=== PATIENT | female | born 1930 ===

== ENCOUNTER 2017-10-24 10:13 | Observation (INO) | payer MEDICAID ==
[2017-10-24 10:23] VITALS: BMI 21.7
--- NOTE | 2017-10-24 10:36 | C.PDOC ---
Time Seen by Provider: 10/24/17 10:23 Chief Complaint (Nursing): Weakness/Neurological Deficit Past Medical History - Medical History PMH: Arthritis, Asthma, Bronchitis, HTN, Hypercholesterolemia, Pneumonia Denies: HIV, Chronic Kidney Disease Surgical History: Appendectomy, Cholecystectomy - [facility] Procedures INTRODUCTION OF ANTI-INFLAM INTO RESP TRACT, VIA OPENING (05/02/16) Family History: States: Unknown Family Hx - Social History Hx Alcohol Use: No Hx Substance Use: No Disposition - Disposition
[2017-10-24] MEDS ORDERED: Labetalol 25mg/5ml Syringe IVP STA (10:38)
--- NOTE | 2017-10-24 10:40 | C.PDOC ---
History Of Present Illness 87-YEAR-OLD FEMALE, PRESENTS TO THE EMERGENCY DEPARTMENT, [facility] CVA/DEHYDRATION. PS SHE IS HAVING RECURRENT NAUSEA, HEADACHE, DIZZINESS, AND EPIG PAIN, PT WOKE UP W SX THIS MORNING. SIMILAR SX A WEEK AGO, EVAL IN [place] AND DC VIRAL SYNDROME, PT HAS HX OF HTN AND IS WELL CONTROLLED. AVG SYS IS 130-140, DENIES HX OF LABILE HTN. TOLD SHE HAD ELEVATED BP IN CT. SYSTOLIC 220 TODAY, SHE TOOK HER OWN [place] THIS MORNING. CLINIC GAVE PT AMLODIPINE W MINIMAL IMPROVEMENT. CURRENTLY NAUSEA, CP AND DIZZ RESOLVED. PT C/O OF RESIDUAL HERNANDEZ. PER EMS NO NOTED FOCAL DEFICIT EN ROUTE. PT C/ O NEW ONSET LEFT LEG HEAVINESS ONGOING FOR 20 DAYS. CHRONICALLY USING A CANE. BUT STATES LEG FEELS FUNNY WHEN SHE TRIES TO WALK. EXAM NEURO SEE [facility] REMAINDER NEG Time Seen by Provider: 10/24/17 10:23 Chief Complaint (Nursing): Weakness/Neurological Deficit History Per: Patient History/Exam Limitations: no limitations Onset/Duration Of Symptoms: Days Current Symptoms Are (Timing): Still Present Past Medical History Reviewed: Historical Data, Nursing Documentation, Vital Signs Vital Signs: Last Vital Signs Temp 98.0 F 10/25/17 07:20 Pulse 64 10/25/17 11:18 Resp 18 10/25/17 07:20 BP 155/65 H 10/25/17 10:14 Pulse Ox 97 10/25/17 14:08 - Medical History PMH: Arthritis, Asthma, Bronchitis, HTN, Hypercholesterolemia, Pneumonia Surgical History: Appendectomy, Cholecystectomy - [facility] Procedures INTRODUCTION OF ANTI-INFLAM INTO RESP TRACT, VIA OPENING (05/02/16) Family History: States: No Known Family Hx - Social History Hx Alcohol Use: No Hx Substance Use: No Review Of Systems Except As Marked, All Systems Reviewed And Found Negative. Constitutional: Negative for: Fever ENT: Negative for: Throat Pain Cardiovascular: Positive for: Chest Pain. Negative for: Palpitations, Edema, Light Headedness Respiratory: Negative for: Shortness of Breath Gastrointestinal: Positive for: Nausea, Abdominal Pain Genitourinary: Negative for: Incontinence Musculoskeletal: Negative for: Back Pain Skin: Negative for: Rash Neurological: Positive for: Headache, Dizziness. Negative for: Weakness, Numbness Physical Exam - Physical Exam Appears: Non-toxic, No Acute Distress Skin: Warm, Dry, No Rash Head: Atraumatic, Normacephalic Eye(s): bilateral: Normal Inspection, PERRL, EOMI Nose: Normal Oral Mucosa: Moist Lips: Normal Appearing Neck: Normal ROM Chest: Symmetrical Cardiovascular: Rhythm Regular, No Murmur Respiratory: Normal Breath Sounds, No Accessory Muscle Use Gastrointestinal/Abdominal: Soft, No Tenderness Back: No CVA Tenderness, No Paraspinal Tenderness Extremity: Normal ROM, No Deformity, No Swelling Neurological/Psych: Other (SEE NIH) ED Course And Treatment - Laboratory Results Result Diagrams: 10/25/17 06:39 10/25/17 06:39 ECG: Interpreted By Me, Viewed By Me ECG Rhythm: Sinus Rhythm ECG Interpretation: No Acute Changes Rate From EC O2 Sat by Pulse Oximetry: 97 (RA) Pulse Ox Interpretation: Normal NIHSS Stroke Scale - Date/Time Evaluation Performed Date Performed: 10/24/17 Time Performed: 10:39 When Was NIHSS Performed: Baseline - How Severe is the Stoke Level of Consciousness: 0=Alert LOC to Questions: 0=Both comments correct LOC to commands: 0=Obeys both correctly Best Gaze: 0=Normal Visual: 0=No visual loss Facial: 0=Normal Motor Arm - Left: 0=No drift Motor Arm - Right: 0=No drift Motor Leg - Left: 1=Drift before 5 sec Motor Leg - Right: 0=No drift Limb Ataxia: 0=Absent Sensory: 0=Normal Best Language: 0=No aphasia Dysarthia: 0=Normal articulation Extinction & Inattention (Neglect): 0=Normal, no object Score: 1 Severity Of Stroke: 1-4= Minor Stroke (1) Progress - Re-Evaluation Re-evaluation Note: 10/24/17 11:00 137/70. CT PENDING 10/24/17 12:48 MILD NAUSEA, HERNANDEZ RESOLVED. NEURO EXAM UNCH. VSS. D/W DR Arcelia MACE WILL ADMIT - Data Reviewed Data Reviewed: Lab, Diagnostic imaging, EKG, Old records - Critical Care Citical Care: Excluding Proc Time Critical Care Time: 90 minutes - Continuity of Care Discussed patient case with:: Patient, Family-HIPPA compliant, Covering for PMD rTPA Inclusion/Exclusion - Refusal of Treatment Patient Refused Treatment: No - Inclusion Criteria for Altepase Patient is 18 years or Older: Yes The Clinical Diagnosis of Ischemic Stroke That is Causing a Potentially Disabling Neurological Deficit: Yes Time of Onset is Well Established to be Less Than 270 Minute Before Treatment Would Begin: No Risk/Benefit Discussed With Patient/Family Member Present: Yes - Exclusion Criteria for Altepase Uncontrolled Hypertension at Time of Treatment (Systolic BP above 185 or Diastolic BP above 110 mmHg): Yes Active Internal Bleeding: No Known Bleeding Diathesis Including but Not Limited to: Platelets Below 100,000/ mm,PTT Above 40 sec After Heparin Use, Current Use of Oral Anitcoagulant With INR Greater Than 1.7 or PT Greater Than 15 secs: No Evidence of an Intracranial Hemorrhage: No Evidence of Major Acute Infarct With Signs Greater Than 1/3 MCA Territory: No Suspicion of Subarachnoid Hemorrhage on Pretreatment Evaluation Even if CT Head Negative For Hemorrhage: No - Warning to TPA With Conditions Following Conditions Weighed Against Anticipated Benefit: Yes Condition: Stroke Serevity Too Mild, Age Greater Than 75 years, Care Team Unable to Determine Eligibilty Additional Condition (For 3-4.5 Hour Window): Age Greater Than 80 Disposition Counseled Patient/Family Regarding: Studies Performed, Diagnosis - Disposition Disposition: HOSPITALIZED Disposition Time: 12:49 Condition: STABLE - POA Present On Arrival: None - Clinical Impression Clinical Impression: Hypertensive emergency, TIA (transient ischemic attack) - Scribe Statement The provider has reviewed the documentation as recorded by the Scribe (Christy Harrell) All medical record entries made by the Scribe were at my direction and personally dictated by me. I have reviewed the chart and agree that the record accurately reflects my personal performance of the history, physical exam, medical decision making, and the department course for this patient. I have also personally directed, reviewed, and agree with the discharge instructions and disposition. Decision To Admit - Pt Status Changed To: Hospital Disposition Of: Observation - . Bed Request Type: Telemetry Admitting Physician: Mannie Mace Patient Diagnosis: Hypertensive emergency, TIA (transient ischemic attack)
[2017-10-24] MEDS ORDERED: Labetalol 25mg/5ml Syringe ONE (10:48)
[2017-10-24 10:53] LABS: BASO % 0.5 % (0.0-2.0); EOS # 1.5 K/uL (0.0-0.7); EOS % 25.1 % (0.0-4.0); LYMPH # 1.7 K/uL (1.0-4.3); LYMPH % 27.7 % (20.0-40.0); MEAN CELL VOLUME 88.7 fL (81.0-99.0); MEAN CORPUSCULAR HEMOGLOBIN 30.1 pg (27.0-31.0); MEAN PLATELET VOLUME 8.1 fL (7.2-11.7); MONO # 0.3 K/uL (0.0-0.8); MONO % 5.1 % (0.0-10.0); NEUT # 2.5 K/uL (1.8-7.0); NEUT % 41.6 % (50.0-75.0); PLATELET COUNT 247 K/uL (130-400); RBC 4.33 Mil/uL (3.80-5.20); WHITE BLOOD COUNT 6.1 K/uL (4.8-10.8)
[2017-10-24 11:09] LABS: PROTHROMBIN TIME 11.2 SECONDS (9.7-12.2)
[2017-10-24 11:20] LABS: ALB/GLOB RATIO 1.4 (1.0-2.1); ALBUMIN 4.3 g/dL (3.5-5.0); ALT/SGPT 26 U/L (9-52); AST/SGOT 28 U/L (14-36); BLOOD UREA NITROGEN 10 mg/dL (7-17); CALCIUM 9.4 mg/dl (8.6-10.4); GFR AFRICAN-AMERICAN > 60; GFR NON-AFRICAN AMERICAN > 60; HDL CHOLESTEROL 68 mg/dL (30-70)
--- NOTE | 2017-10-24 11:25 | RAD ---
HISTORY: Code Stroke COMPARISON: No prior. FINDINGS: LUNGS: No active pulmonary disease. PLEURA: No significant pleural effusion identified, no pneumothorax apparent. CARDIOVASCULAR: Atherosclerotic aortic calcifications. Cardiomediastinal silhouette is enlarged. OSSEOUS STRUCTURES: Degenerative changed. VISUALIZED UPPER ABDOMEN: Normal. OTHER FINDINGS: None. IMPRESSION: No active disease.
--- NOTE | 2017-10-24 11:26 | CT ---
PROCEDURE: CT HEAD WITHOUT CONTRAST. HISTORY: Code Stroke COMPARISON: None available. TECHNIQUE: Axial computed tomography images were obtained through the head/brain without intravenous contrast. Radiation dose: Total exam DLP = 751.6 mGy-cm. This CT exam was performed using one or more of the following dose reduction techniques: Automated exposure control, adjustment of the mA and/or kV according to patient size, and/or use of iterative reconstruction technique. FINDINGS: HEMORRHAGE: No intracranial hemorrhage. BRAIN: No mass effect or edema. Atrophy. Chronic microvascular ischemic changes. Bilateral basal ganglia lacunar infarctions. VENTRICLES: Unremarkable. No hydrocephalus. CALVARIUM: Unremarkable. PARANASAL SINUSES: Unremarkable as visualized. No significant inflammatory changes. MASTOID AIR CELLS: Unremarkable as visualized. No inflammatory changes. OTHER FINDINGS: None. IMPRESSION: No acute intracranial pathology. Age-related changes.
[2017-10-24 11:31] LABS: LDL CHOLESTEROL 91 mg/dL (0-129)
[2017-10-24 11:40] LABS: ANISOCYTOSIS SLIGHT; BANDS 1 % (0-2); EOSINOPHIL 24 % (0-4); LYMPHOCYTE 25 % (20-40); MONOCYTE 3 % (0-10); NEUTROPHIL 47 % (50-75); PLATELET ESTIMATE NORMAL (NORMAL); POIKILOCYTOSIS SLIGHT; TOTAL CELLS COUNTED 100
[2017-10-24 11:42] LABS: BURR CELLS SLIGHT
[2017-10-24 11:43] LABS: URINE BACTERIA RARE (<OCC); URINE BILIRUBIN NEGATIVE (NEGATIVE); URINE BLOOD 1+ (NEGATIVE); URINE CLARITY Clear (Clear); URINE COLOR Colorless (YELLOW); URINE GLUCOSE (UA) NORMAL (Normal); URINE PROTEIN NEGATIVE (NEGATIVE); URINE UROBILINOGEN NORMAL mg/dL (0.2-1.0)
[2017-10-24 11:46] LABS: URINE LEUKOCYTE ESTERASE 1+ Leu/uL (Negative)
--- NOTE | 2017-10-24 11:50 | CT ---
PROCEDURE: CTA HEAD AND NECK WITH CONTRAST HISTORY: HTN EMERG, LLE WEAKNESS COMPARISON: None available. TECHNIQUE: Initial noncontrast head CT was performed. Subsequently, CT angiogram of the head and neck were performed after the intravenous administration of 80 mL of Omnipaque 350. Contiguous 1.5mm thick images were obtained in the axial plane of the neck. 2-D coronal and sagittal MPR images were obtained. Imaging postprocessing was performed with 3-D images also obtained. A delayed contrast head CT was also obtained. This CT exam was performed using one or more of the following dose reduction techniques: Automated exposure control, adjustment of the mA and/or kV according to patient size, and/or use of iterative reconstruction technique. Contrast dose: 100 mL Visipaque Radiation dose: Total exam DLP = 351.14 mGy-cm. FINDINGS: HEAD: Right: The intracranial internal carotid artery, and anterior and middle cerebral arteries are widely patent. Left: The intracranial internal carotid artery, and anterior and middle cerebral arteries are widely patent. Posterior circulation: The visualized intracranial vertebral arteries, basilar artery and posterior cerebral arteries are widely patent. There is no endoluminal filling defect to suggest thrombus. There is no intracranial saccular aneurysm. There is no abnormal enhancement on the postcontrast CT. NECK: There is a three vessel aortic arch. There is no stenosis at the origins of the great vessels at the level of the aortic arch. There are mild atherosclerotic calcifications in the carotid bulb. Right Carotid: On the right, the common carotid, internal carotid and external carotid arteries are widely patent. There is no hemodynamically significant stenosis in the internal carotid arteries. Left Carotid: On the left, the common carotid, internal carotid and external carotid arteries are widely patent.There is no hemodynamically significant stenosis in the internal carotid arteries. The vertebral arteries are widely patent. The visualized soft tissues of the neck are normal. The visualized brain and cervical spine are within normal limits. There are retention cysts/polyps in the maxillary sinuses. The lung apices are clear. IMPRESSION: 1. No evidence of intraluminal thrombus, definite significant stenosis or occlusion in the intracranial arteries. 2. No evidence of hemodynamically significant stenosis in the internal carotid arteries. 3. Patent codominant vertebral arteries.
--- NOTE | 2017-10-24 14:47 | CP.PCM.HP ---
History of Present Illness - History of Present Illness History of Present Illness: CC "headache, nausea, high blood pressure" HPI: Patient is a 87 year old female with history of HTN, HLD, asthma, multiple UTIs who reports 1 week history of intermittent right sided headache associated with nausea, dizziness, lightheadedness. She reportedly saw her PMD Dr. Bryan at [facility] today where her systolic BP was found to be >220 and she was given Amlodipine and instructed to go the ED. While in the ED she received Labetalol 20mg IV once. She also complains of substernal pressure like chest pain nonradiating, that is worse with touch and inspiration currently. She attributes some of her chest pain from a prior fall in 2011. She complains of epigastric pain as well, however she states her abdominal pain has improved. She denies vomiting, diarrhea, however states that her last bowel movement was 3 days ago. She also complains of left leg weakness with numbness and paresthesias describe as electric shock like that have been present for a year. She admits to using a cane on her right side. She denies diaphoresis, fevers, changes in vision, hearing, dysphagia, back pain, rash. PMD: Dr. Bryan, [facility] PMH: HTN, HLD, asthma, pneumonia 2002, multiple UTIs, possible hx of CAD, hx of fall in 2011 PSH: appendectomy, cholecystectomy, hysterectomy Family hx: Strong family history of CAD, Mother and sister - CVA. No history of cancer Social hx: denies tobacco, alcohol or drug use. Lives with daughter. 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 Uses a cane with her right hand. Meds: Losartan 100mg PO daily, ASA 81mg PO, Singulair 10mg mQHS daily. As per pharmacy, she last filled script for inhaler in 2016. Allergies: PCN, fish - hives/rash Code status: unknown Health care proxy: Daughter Alena [phone] Present on Admission - Present on Admission Any Indicators Present on Admission: No Review of Systems - Constitutional Constitutional: Headache, Weakness. absent: Fever, Lethargy - EENT Eyes: absent: Change in Vision, Loss of Vision Ears: absent: Decreased Hearing, Abnormal Hearing Nose/Mouth/Throat: absent: Nasal Congestion, Sore Throat - Cardiovascular Cardiovascular: Chest Pain. absent: Edema, Pain Radiating to Arm/Neck/Jaw, Pedal Edema Additional comments: substernal nonradiating pain that is reproducible with touch and inspiration - Respiratory Respiratory: Cough, Pain on Inspiration. absent: Dyspnea - Gastrointestinal Gastrointestinal: Abdominal Pain, Constipation (last bowel movement was 3 days ago ), Nausea. absent: Diarrhea, Loose Stools, Vomiting - Genitourinary Genitourinary: Urinary Frequency, Freq UTI. absent: Dysuria - Musculoskeletal Musculoskeletal: Muscle Weakness (of left lower extremity ), Tingling. absent: Back Pain - Integumentary Integumentary: absent: Pruritus, Rash, Jaundice - Neurological Neurological: Dizziness, Numbness, Headaches, Paresthesias, Weakness. absent: Syncope, Tremor Past Patient History - Infectious Disease Hx of Infectious Diseases: None - Past Medical History & Family History Past Medical History?: Yes - Past Social History Smoking Status: Never Smoked - CARDIAC Hx Hypercholesterolemia: Yes Hx Hypertension: Yes - PULMONARY Hx Asthma: Yes Hx Bronchitis: Yes Hx Pneumonia: Yes - NEUROLOGICAL Hx Neurological Disorder: No - HEENT Hx HEENT Problems: Yes ([place]hin[place]) Hx Cataracts: Yes - RENAL Hx Chronic Kidney Disease: No - ENDOCRINE/METABOLIC Hx Endocrine Disorders: No - HEMATOLOGICAL/ONCOLOGICAL Hx Human Immunodeficiency Virus (HIV): No - INTEGUMENTARY Hx Dermatological Problems: No - MUSCULOSKELETAL/RHEUMATOLOGICAL Hx Arthritis: Yes - GASTROINTESTINAL Hx Gastrointestinal Disorders: No - GENITOURINARY/GYNECOLOGICAL Hx Genitourinary Disorders: No - PSYCHIATRIC Hx Substance Use: No - SURGICAL HISTORY Hx Appendectomy: Yes Hx Cholecystectomy: Yes - ANESTHESIA Hx Anesthesia: Yes Hx Anesthesia Reactions: No Hx Malignant Hyperthermia: No Meds Allergies/Adverse Reactions: Allergies Allergy/AdvReac Type Severity Reaction Status Date / Time Penicillins Allergy RASH Verified 12/15/16 17:30 Physical Exam - Constitutional Appears: No Acute Distress - Head Exam Head Exam: ATRAUMATIC, NORMOCEPHALIC - Eye Exam Eye Exam: EOMI. absent: Scleral icterus Pupil Exam: PERRL - ENT Exam ENT Exam: Mucous Membranes Moist - Expanded ENT Exam Expanded Mouth exam: absent: muffled voice Throat exam: absent: Post Pharyngeal Edema, Tonsillar Erythema, Tonsillar Exudate, Tonsillomegaly - Neck Exam Neck exam: Positive for: Full Rom. Negative for: Thyromegaly - Respiratory Exam Respiratory Exam: Chest Wall Tenderness (to sternum, tenderness reproducible with touch. no rash noted to anterior chest. ), Decreased Breath Sounds. absent : Rales, Rhonchi, Wheezes, Respiratory Distress - Cardiovascular Exam Cardiovascular Exam: REGULAR RHYTHM, +S1, +S2. absent: Gallop, JVD, Rubs - GI/Abdominal Exam GI & Abdominal Exam: Normal Bowel Sounds, Soft. absent: Distended, Firm, Guarding, Hernia, Tenderness - Extremities Exam Extremities exam: Positive for: normal capillary refill, pedal pulses present. Negative for: calf tenderness, pedal edema - Back Exam Back exam: absent: CVA tenderness (L), CVA tenderness (R), rash noted - Neurological Exam Neurological exam: Alert, CN II-XII Intact, Oriented x3 Additional comments: 4/5 strength in upper and lower extremities equally. Sensation intact in left lower extremity. Finger to nose test within normal limits. - Psychiatric Exam Psychiatric exam: Normal Affect - Skin Skin Exam: Dry, Intact, Warm Results - Vital Signs Recent Vital Signs: Last Vital Signs Temp 97.9 F 10/24/17 10:39 Pulse 64 10/24/17 13:10 Resp 18 10/24/17 13:10 BP 118/50 L 10/24/17 13:10 Pulse Ox 97 10/24/17 13:29 - Labs Result Diagrams: 10/24/17 10:48 10/24/17 10:48 Labs: Laboratory Results - last 24 hr 10/24/17 10/24/17 10/24/17 10:19 10:48 10:48 WBC 6.1 RBC 4.33 Hgb 13.0 Hct 38.3 MCV 88.7 MCH 30.1 MCHC 34.0 RDW 15.0 H Plt Count 247 MPV 8.1 Neut % (Auto) 41.6 L Lymph % (Auto) 27.7 Walton % (Auto) 5.1 Eos % (Auto) 25.1 H Baso % (Auto) 0.5 Neut # (Auto) 2.5 Lymph # (Auto) 1.7 Walton # (Auto) 0.3 Eos # (Auto) 1.5 H Baso # (Auto) 0.0 Neutrophils % (Manual) 47 L Band Neutrophils % 1 Lymphocytes % (Manual) 25 Monocytes % (Manual) 3 Eosinophils % (Manual) 24 H Platelet Estimate Normal Poikilocytosis (manual Slight Anisocytosis (manual) Slight [place] Cells Slight PT 11.2 INR 1.0 APTT 30 Sodium Potassium Chloride Carbon Dioxide Anion Gap BUN Creatinine Est GFR ( Amer) Est GFR (Non-Af Amer) POC Glucose (mg/dL) 82 Random Glucose Hemoglobin A1c Calcium Total Bilirubin AST ALT Alkaline Phosphatase Troponin I Total Protein Albumin Globulin Albumin/Globulin Ratio Triglycerides Cholesterol LDL Cholesterol Direct HDL Cholesterol Urine Color Urine Clarity Urine pH Ur Specific Sunshine Urine Protein Urine Glucose (UA) Urine Ketones Urine Blood Urine Nitrate Urine Bilirubin Urine Urobilinogen Ur Leukocyte Esterase Urine WBC (Auto) Urine RBC (Auto) Urine Bacteria Blood Type Antibody Screen 10/24/17 10/24/17 10/24/17 10:48 11:36 11:50 WBC RBC Hgb Hct MCV MCH MCHC RDW Plt Count MPV Neut % (Auto) Lymph % (Auto) Walton % (Auto) Eos % (Auto) Baso % (Auto) Neut # (Auto) Lymph # (Auto) Walton # (Auto) Eos # (Auto) Baso # (Auto) Neutrophils % (Manual) Band Neutrophils % Lymphocytes % (Manual) Monocytes % (Manual) Eosinophils % (Manual) Platelet Estimate Poikilocytosis (manual Anisocytosis (manual) [place] Cells PT INR APTT Sodium 139 Potassium 4.8 Chloride 103 Carbon Dioxide 29 Anion Gap 13 BUN 10 Creatinine 0.8 Est GFR ( Amer) > 60 Est GFR (Non-Af Amer) > 60 POC Glucose (mg/dL) Random Glucose 97 Hemoglobin A1c Calcium 9.4 Total Bilirubin 0.6 AST 28 ALT 26 Alkaline Phosphatase 111 Troponin I < 0.0120 Total Protein 7.4 Albumin 4.3 Globulin 3.1 Albumin/Globulin Ratio 1.4 Triglycerides 90 Cholesterol 206 H LDL Cholesterol Direct 91 HDL Cholesterol 68 Urine Color Colorless Urine Clarity Clear Urine pH 7.0 Ur Specific Sunshine 1.002 L Urine Protein Negative Urine Glucose (UA) Normal Urine Ketones Negative Urine Blood 1+ H Urine Nitrate Negative Urine Bilirubin Negative Urine Urobilinogen Normal Ur Leukocyte Esterase 1+ H Urine WBC (Auto) 5 Urine RBC (Auto) 2 Urine Bacteria Rare Blood Type B POSITIVE Antibody Screen Negative 10/24/17 12:10 WBC RBC Hgb Hct MCV MCH MCHC RDW Plt Count MPV Neut % (Auto) Lymph % (Auto) Walton % (Auto) Eos % (Auto) Baso % (Auto) Neut # (Auto) Lymph # (Auto) Walton # (Auto) Eos # (Auto) Baso # (Auto) Neutrophils % (Manual) Band Neutrophils % Lymphocytes % (Manual) Monocytes % (Manual) Eosinophils % (Manual) Platelet Estimate Poikilocytosis (manual Anisocytosis (manual) [place] Cells PT INR APTT Sodium Potassium Chloride Carbon Dioxide Anion Gap BUN Creatinine Est GFR ( Amer) Est GFR (Non-Af Amer) POC Glucose (mg/dL) Random Glucose Hemoglobin A1c 5.6 Calcium Total Bilirubin AST ALT Alkaline Phosphatase Troponin I Total Protein Albumin Globulin Albumin/Globulin Ratio Triglycerides Cholesterol LDL Cholesterol Direct HDL Cholesterol Urine Color Urine Clarity Urine pH Ur Specific Sunshine Urine Protein Urine Glucose (UA) Urine Ketones Urine Blood Urine Nitrate Urine Bilirubin Urine Urobilinogen Ur Leukocyte Esterase Urine WBC (Auto) Urine RBC (Auto) Urine Bacteria Blood Type Antibody Screen Assessment & Plan - Assessment and Plan (Free Text) Assessment: 87 year old female with history of HTN, HLD, asthma, possible CAD, multiple UTIs who presents for evaluation of headache, nausea, dizziness, lightheadedness and elevated blood pressure. Plan: Assessment/plan Hypertensive urgency Admit to observe on Telemetry BP currently 167/80 Losartan 100mg PO to be started tomorrow am Hydralazine 10mg IV Q6 PRN for SBP >160 Vitals Q 4 hours TSH 1.55, free T4 1.54 Atypical chest pain Initial EKG NSR at 63, no ST-T changes. Troponins x2 EKGs x2 CXR: no active disease Complaint of Abdominal pain, nausea Abdominal exam benign Continue to monitor Zofran 4mg IV Q6 PRN nausea/vomiting Headache, right temporalparietal CT head No acute intracranial pathology. Age-related changes. CTA 1. No evidence of intraluminal thrombus, definite significant stenosis or occlusion in the intracranial arteries.2. No evidence of hemodynamically significant stenosis in the internal carotid arteries. 3. Patent codominant vertebral arteries Tylenol 650mg PO Q6 ELIJAH x1 day Left leg pain with paresthesias CT head No acute intracranial pathology. Age-related changes. Possible secondary to lumbar radiculopathy PT/OT evaluation and treat Follow up as outpatient Hx of multiple UTIs No current complaints of urinary frequency UA 1+ leuk esterase, 1+ blood Possible CAD Initial EKG: NSR at 63, no ST-T changes. EKGs F/u ECHO History of asthma Duoneb Q6 PRN shortness of breath/wheezing History of HLD Fasting lipid panel for tomorrow morning Prophylaxis Heparin 5000 units SC Q12 SCDs DVT risk score of 2 based on age GI prophylaxis not indicated at this time Heart healthy diet, low carb 2 g Na [employer], PGYI Case discussed with Dr. Carroll
[2017-10-24] MEDS ORDERED: Albuterol-Ipratrop 3 mg / 0.5 (3 ml) UD INH PRN (15:14)
--- NOTE | 2017-10-24 19:45 | CARD ---
APPROVED REPORT EKG Measurement Heart [id number] <Conclusion> Normal sinus rhythm Normal ECG
[2017-10-25 07:33] LABS: BLOOD UREA NITROGEN 12 mg/dL (7-17); CALCIUM 9.1 mg/dl (8.6-10.4); GFR AFRICAN-AMERICAN > 60; GFR NON-AFRICAN AMERICAN 59; HDL CHOLESTEROL 59 mg/dL (30-70)
[2017-10-25 07:34] LABS: BASO % 0.5 % (0.0-2.0); EOS # 1.6 K/uL (0.0-0.7); EOS % 25.3 % (0.0-4.0); HEMOGLOBIN 12.2 g/dL (11.0-16.0); LYMPH # 1.5 K/uL (1.0-4.3); LYMPH % 23.3 % (20.0-40.0); MEAN CELL VOLUME 89.4 fL (81.0-99.0); MEAN CORPUSCULAR HEMOGLOBIN 30.8 pg (27.0-31.0); MEAN CORPUSCULAR HGB CONC 34.4 g/dL (33.0-37.0); MEAN PLATELET VOLUME 8.4 fL (7.2-11.7); MONO # 0.4 K/uL (0.0-0.8); MONO % 6.3 % (0.0-10.0); NEUT # 2.8 K/uL (1.8-7.0); NEUT % 44.6 % (50.0-75.0); NRBC % 0.1 % (0.0-2.0); PLATELET COUNT 240 K/uL (130-400); RBC 3.97 Mil/uL (3.80-5.20); RED CELL DISTRIBUTION WIDTH 15.1 % (11.5-14.5); WHITE BLOOD COUNT 6.3 K/uL (4.8-10.8)
[2017-10-25 07:49] LABS: LDL CHOLESTEROL 94 mg/dL (0-129)
[2017-10-25 07:58] VITALS: RESP 18; TEMP 98
[2017-10-25 09:58] LABS: ANISOCYTOSIS SLIGHT; BASOPHIL 1 % (0-2); EOSINOPHIL 29 % (0-4); LYMPHOCYTE 25 % (20-40); MONOCYTE 2 % (0-10); NEUTROPHIL 43 % (50-75); OVALOCYTES SLIGHT; PLATELET ESTIMATE NORMAL (NORMAL); TOTAL CELLS COUNTED 100
[2017-10-25 10:19] VITALS: BP 155/65
[2017-10-25] MEDS ORDERED: Albuterol-Ipratrop 3 mg / 0.5 (3 ml) UD INH ONE (10:45)
--- NOTE | 2017-10-25 10:54 | CP.PCM.PN ---
Subjective - Date & Time of Evaluation Date of Evaluation: 10/25/17 Time of Evaluation: 10:25 - Subjective Subjective: Hospitalist Progress Note Patient was seen and examined at 10:25 AM. She was admitted for HTN Urgency Her blood pressure is currently under control on Losartan 100 mg PO 1x/day and we will add Norvasc 5 mg PO to be taken in the evening She continues to complain of Nausea however, has eaten her dinner and breakfast this morning without any vomiting/loss of appetite. She no longer is complaining of abdominal pain. She complained of Upper Substernal Pain of her chest that was nonradiating: her troponins are negative and EKG shows NSR She moved her bowels normally after having Prune Juice She continues to complain of Left leg paresthesias and pain: confirmed with Daughter Alena that this has been present for over 1 year now. There are NO complaints of bowel/bladder incontinence or saddle anesthesia. She walks with walking can on the right. She will need outpatient CT Lumbar/Sacral Spine She has a history of Asthma and uses Advair only as needed. Stressed to Daughter Alena that this is NOT an as needed medication and that prolonged daily use of this medication for an Asthmatic is not recommended. She will be discharged on Pulmicort daily and Albuterol PRN. There is the possibility of UTI as there is 1+ LE on UA and she continues to complain of burning upon urination. She will be discharged on short course of Ciprofloxacin. NO other issues upon FULL ROS. Exam: General: AAOX3, NAD HEENT: NCA, EOMI, PERRLA, NO cervical/supraclavicular/submandibular lymphadenopathy, NO pharyngeal erythema/exudate, Nasal Turbinates are nonerythematous/nonedematous, Oral Mucosa is moist Cardio: NS1 and NS2, NO M/R/G Resp: CTA B/L, NO R/R/W GI: BSx4, Soft, NT, NO HSM, NO guarding/rebound tenderness, NO CVA Tenderness Ext: Pulses are strong and equal, Capillary Refill is 2 seconds, NO edema Neuro: CN II through XII are grossly intact Assessments: 1). HTN Urgency: b/p is now under control 2). Atypical Chest Pain: troponins are negative 3). Abdominal Pain with Nausea but NO vomiting 4). Right Temporal Parietal HERNANDEZ: NO headache at this time. CT Head and CT Angio Head and Neck were unremarkable 5). Hx Multiple UTI: as per Daughter Alena, no longer on pyridium or macrobid 6). Possible CAD: patient nor daughter give history of this however this was noted on prior H&P. F/U Echo report outpatient 7). Chronic Left Leg Paresthesias/Pain: perform CT Lumbar/Scrum Spine outpatient 8). Hx Asthma: Duoneb treatment at the end of exam today 9). HLD: lipid panel noted and no treatment at this time The following instructions were explained to Jenelle Carvajal and a copy will need to be provided to her upon discharge: 1). Schedule follow up with primary care physician Dr. Jam Bryan to take place in the next 7 days by calling [phone]. Through his office you will need to have the following done: CT Scan of the Lumbar Spine Urine Culture to make sure that there is NO infection after completing antibiotic Follow up report for ultrasound of the heart that was done while you were in the hospital 2). Measure blood pressure and heart rate once a day in the following manner and bring results in with you to your appointment with Dr. Bryan: One day before breakfast One day before lunch One day before dinner Then continue to repeat this cycle 3). You will need to have the following prescriptions filled at your pharmacy on your way from the hospital: Norvasc 5 mg, 1 tablet by mouth 1x/day at 8 PM, Dispense #30, NO refills Pulmicort 180 mcg/actuation, 1 puff inhalation by mouth 2x/day (8 AM and 8 PM), Dispense #1, NO refills Albuterol 90 mcg/acutation, 2 puff inhalation by mouth every 6 hours ONLY NEEDED for shortness of breath, Dispense #1, NO refills Ciprofloxacin 500 mg, 1 tablet by mouth 2x/day (8 AM and 8 PM), Dispense #10, NO refills Pepcid 20 mg, 1 tablet by mouth 2x/day (8 AM and 8 PM), Dispense #60, NO refills 4). You stated that you had enough of Losartan 100 mg at home so please continue to take this at 8 AM every day. 5). DO NOT take the other inhalers that you have at home. 6). You may take 8 ounces of prune juice in the morning if you have not had a bowel movement in 2 to 3 days. 7). Please make sure that you are eating 1 serving of [place]ov[place] yogurt containing probiotics with lunch every day for the next 35 days. This will help you to keep the good bacteria in your colon that may have gone away while you are on the antibiotic for your urine. Mannie Carroll D.O. Objective - Vital Signs/Intake and Output Vital Signs (last 24 hours): Temp Pulse Resp BP Pulse Ox 98.0 F 65 18 155/65 H 98 10/25/17 07:20 10/25/17 10:14 10/25/17 07:20 10/25/17 10:14 10/25/17 07:20 Intake and Output: 10/25/17 10/25/17 06:59 18:59 Intake Total 480 Balance 480 - Medications Medications: Current Medications Acetaminophen (Tylenol 325mg Tab) 650 mg PO Q6 [facility] Last Admin: 10/25/17 06:10 Dose: 650 mg Albuterol/Ipratropium (Duoneb 3 Mg/0.5 Mg (3 Ml) Ud) 3 ml INH RQ6 PRN PRN Reason: Wheezing Albuterol/Ipratropium (Duoneb 3 Mg/0.5 Mg (3 Ml) Ud) 3 ml INH ONCE ONE Stop: 10/25/17 10:46 Heparin Sodium (Porcine) (Heparin) 5,000 units SC Q12 [facility] Last Admin: 10/25/17 10:21 Dose: 5,000 units Hydralazine HCl (Apresoline) 10 mg IVP Q6H PRN PRN Reason: Systolic Blood Pressure Last Admin: 10/24/17 19:31 Dose: 10 mg Losartan Potassium (Cozaar) 100 mg PO DAILY [facility] Last Admin: 10/25/17 10:20 Dose: 100 mg Ondansetron HCl (Zofran Inj) 4 mg IVP Q6 PRN PRN Reason: Nausea/Vomiting Last Admin: 10/24/17 19:31 Dose: 4 mg - Labs Labs: 10/25/17 06:39 10/25/17 06:39 PT 11.2 SECONDS (9.7-12.2) 10/24/17 10:48 INR 1.0 10/24/17 10:48 APTT 30 SECONDS (21-34) 10/24/17 10:48
[2017-10-25 11:19] VITALS: PULSE 64
--- NOTE | 2017-10-25 12:56 | CARD ---
APPROVED REPORT Date of service: 10/25/2017 EXAM: Two-dimensional and M-mode echocardiogram with Doppler and color Doppler. Other Information Quality : GoodRhythm : INDICATION CVA/TIA Cardiac Disease: CAD Syncope RISK FACTORS Hypertension 2D DIMENSIONS IVSd1.1 (0.7-1.1cm)LVDd3.1 (3.9-5.9cm) PWd0.9 (0.7-1.1cm)LVDs2.3 (2.5-4.0cm) FS (%) 25.3 %LVEF (%)60.0 (>50%) M-Mode DIMENSIONS Left Atrium (MM)4.23 (2.5-4.0cm)IVSd1.37 (0.7-1.1cm) Aortic Root2.86 (2.2-3.7cm)LVDd4.71 (4.0-5.6cm) Aortic Cusp Exc.1.87 (1.5-2.0cm)PWd1.16 (0.7-1.1cm) FS (%) 45 %LVDs2.58 (2.0-3.8cm) LVEF (%)76 (>50%) Aortic Valve AI P 1/2 [id number] Mitral Valve MV E Fpximvfd45.3cm/sMV A Xtylkjks104.5cm/sE/A ratio0.7 TDI E/Lateral E'0.0E/Medial E'0.0 Tricuspid Valve TR Peak Dltsihrj599wh/sTR Peak Gr.[id number] LEFT VENTRICLE The left ventricle is normal size. There is mild concentric left ventricular hypertrophy. Left ventricle systolic function is normal. The Ejection Fraction is 60-65%. There is normal LV segmental wall motion. Transmitral Doppler flow pattern is Grade I-abnormal relaxation pattern. There is no ventricular septal defect visualized. RIGHT VENTRICLE The right ventricle is normal size. The right ventricular systolic function is normal. ATRIA The left atrium is mildly dilated. The right atrium size is normal. AORTIC VALVE The aortic valve is mildly sclerotic. The aortic valve is tri-cuspid. There is mild to moderate aortic regurgitation. There is no aortic valvular stenosis. MITRAL VALVE The mitral valve is normal in structure. There is no evidence of mitral valve prolapse. Mitral regurgitation is trace. TRICUSPID VALVE The tricuspid valve is normal in structure. There is trace tricuspid regurgitation. Right ventricular systolic pressure is estimated at less than 30 mmHg. There is no pulmonary hypertension. PULMONIC VALVE The pulmonary valve is normal in structure. There is mild to moderate pulmonic valvular regurgitation. GREAT VESSELS The aortic root is normal in size. The ascending aorta is Mildly dilated. 3.8 cm The IVC is normal in size and collapses >50% with inspiration. PERICARDIAL EFFUSION There is no pericardial effusion. <Conclusion> There is mild concentric left ventricular hypertrophy. Left ventricle systolic function is normal. The Ejection Fraction is 60-65%. Transmitral Doppler flow pattern is Grade I-abnormal relaxation pattern. There is mild to moderate aortic regurgitation. Mitral regurgitation is trace. There is mild to moderate pulmonic valvular regurgitation. The ascending aorta is Mildly dilated. 3.8 cm
[2017-10-25 14:08] VITALS: O2SAT 97
--- NOTE | 2017-10-25 23:04 | CP.PCM.DIS ---
Provider - Provider Date of Admission: 10/24/17 12:50 Attending physician: Mannie Carrlol MD Primary care physician: Dr. Conklin Time Spent in preparation of Discharge (in minutes): 33 Hospital Course - Lab Results Lab Results: Most Recent Lab Values WBC 6.3 K/uL (4.8-10.8) 10/25/17 06:39 RBC 3.97 Mil/uL (3.80-5.20) 10/25/17 06:39 Hgb 12.2 g/dL (11.0-16.0) 10/25/17 06:39 Hct 35.5 % (34.0-47.0) 10/25/17 06:39 MCV 89.4 fL (81.0-99.0) 10/25/17 06:39 MCH 30.8 pg (27.0-31.0) 10/25/17 06:39 MCHC 34.4 g/dL (33.0-37.0) 10/25/17 06:39 RDW 15.1 % (11.5-14.5) H 10/25/17 06:39 Plt Count 240 K/uL (130-400) 10/25/17 06:39 MPV 8.4 fL (7.2-11.7) 10/25/17 06:39 Neut % (Auto) 44.6 % (50.0-75.0) L 10/25/17 06:39 Lymph % (Auto) 23.3 % (20.0-40.0) 10/25/17 06:39 [place] % (Auto) 6.3 % (0.0-10.0) 10/25/17 06:39 Eos % (Auto) 25.3 % (0.0-4.0) H 10/25/17 06:39 Baso % (Auto) 0.5 % (0.0-2.0) 10/25/17 06:39 Neut # (Auto) 2.8 K/uL (1.8-7.0) 10/25/17 06:39 Lymph # (Auto) 1.5 K/uL (1.0-4.3) 10/25/17 06:39 [place] # (Auto) 0.4 K/uL (0.0-0.8) 10/25/17 06:39 Eos # (Auto) 1.6 K/uL (0.0-0.7) H 10/25/17 06:39 Baso # (Auto) 0.0 K/uL (0.0-0.2) 10/25/17 06:39 Neutrophils % (Manual) 43 % (50-75) L 10/25/17 06:39 Band Neutrophils % 1 % (0-2) 10/24/17 10:48 Lymphocytes % (Manual) 25 % (20-40) 10/25/17 06:39 Monocytes % (Manual) 2 % (0-10) 10/25/17 06:39 Eosinophils % (Manual) 29 % (0-4) H 10/25/17 06:39 Basophils % (Manual) 1 % (0-2) 10/25/17 06:39 Platelet Estimate Normal (NORMAL) 10/25/17 06:39 Poikilocytosis (manual Slight 10/24/17 10:48 Anisocytosis (manual) Slight 10/25/17 06:39 Ovalocytes Slight 10/25/17 06:39 Bandar Cells Slight 10/24/17 10:48 PT 11.2 SECONDS (9.7-12.2) 10/24/17 10:48 INR 1.0 10/24/17 10:48 APTT 30 SECONDS (21-34) 10/24/17 10:48 Sodium 137 mmol/L (132-148) 10/25/17 06:39 Potassium 4.2 mmol/L (3.6-5.2) 10/25/17 06:39 Chloride 102 mmol/L (98-107) 10/25/17 06:39 Carbon Dioxide 28 mmol/L (22-30) 10/25/17 06:39 Anion Gap 11 (10-20) 10/25/17 06:39 BUN 12 mg/dL (7-17) 10/25/17 06:39 Creatinine 0.9 mg/dL (0.7-1.2) 10/25/17 06:39 Est GFR ( Amer) > 60 10/25/17 06:39 Est GFR (Non-Af Amer) 59 10/25/17 06:39 POC Glucose (mg/dL) 100 mg/dL (65-110) 10/25/17 11:16 Random Glucose 90 mg/dL (65-105) 10/25/17 06:39 Hemoglobin A1c 5.6 % (4.2-6.5) 10/24/17 12:10 Calcium 9.1 mg/dl (8.6-10.4) 10/25/17 06:39 Phosphorus 4.2 mg/dL (2.5-4.5) 10/25/17 06:39 Magnesium 2.0 mg/dL (1.6-2.3) 10/25/17 06:39 Total Bilirubin 0.6 mg/dL (0.2-1.3) 10/24/17 10:48 AST 28 U/L (14-36) 10/24/17 10:48 ALT 26 U/L (9-52) 10/24/17 10:48 Alkaline Phosphatase 111 U/L (38-126) 10/24/17 10:48 Troponin I < 0.0120 ng/mL (0.00-0.120) 10/24/17 22:09 Total Protein 7.4 g/dL (6.3-8.3) 10/24/17 10:48 Albumin 4.3 g/dL (3.5-5.0) 10/24/17 10:48 Globulin 3.1 gm/dL (2.2-3.9) 10/24/17 10:48 Albumin/Globulin Ratio 1.4 (1.0-2.1) 10/24/17 10:48 Triglycerides 56 mg/dL (0-149) D 10/25/17 06:39 Cholesterol 182 mg/dL (0-199) 10/25/17 06:39 LDL Cholesterol Direct 94 mg/dL (0-129) 10/25/17 06:39 HDL Cholesterol 59 mg/dL (30-70) 10/25/17 06:39 Free T4 1.54 ng/dL (0.78-2.19) 10/24/17 18:24 TSH 3rd Generation 1.55 mIU/L (0.46-4.68) 10/24/17 18:05 Urine Color Colorless (YELLOW) 10/24/17 11:36 Urine Clarity Clear (Clear) 10/24/17 11:36 Urine pH 7.0 (5.0-8.0) 10/24/17 11:36 Ur Specific [place] 1.002 (1.003-1.030) L 10/24/17 11:36 Urine Protein Negative mg/dL (NEGATIVE) 10/24/17 11:36 Urine Glucose (UA) Normal mg/dL (Normal) 10/24/17 11:36 Urine Ketones Negative mg/dL (NEGATIVE) 10/24/17 11:36 Urine Blood 1+ (NEGATIVE) H 10/24/17 11:36 Urine Nitrate Negative (NEGATIVE) 10/24/17 11:36 Urine Bilirubin Negative (NEGATIVE) 10/24/17 11:36 Urine Urobilinogen Normal mg/dL (0.2-1.0) 10/24/17 11:36 Ur Leukocyte Esterase 1+ Emily/uL (Negative) H 10/24/17 11:36 Urine WBC (Auto) 5 /hpf (0-5) 10/24/17 11:36 Urine RBC (Auto) 2 /hpf (0-3) 10/24/17 11:36 Urine Bacteria Rare (<OCC) 10/24/17 11:36 Blood Type B POSITIVE 10/24/17 11:50 Antibody Screen Negative 10/24/17 11:50 - Hospital Course Hospital Course: Admitted on 10/24/17 On admission: CC "headache, nausea, high blood pressure" HPI: Patient is a 87 year old female with history of HTN, HLD, asthma, multiple UTIs who reports 1 week history of intermittent right sided headache associated with nausea, dizziness, lightheadedness. She reportedly saw her PMD Dr. Bryan at [facility] today where her systolic BP was found to be >220 and she was given Amlodipine and instructed to go the ED. While in the ED she received Labetalol 20mg IV once. She also complains of substernal pressure like chest pain nonradiating, that is worse with touch and inspiration currently. She attributes some of her chest pain from a prior fall in 2011. She complains of epigastric pain as well, however she states her abdominal pain has improved. She denies vomiting, diarrhea, however states that her last bowel movement was 3 days ago. She also complains of left leg weakness with numbness and paresthesias describe as electric shock like that have been present for a year. She admits to using a cane on her right side. She denies diaphoresis, fevers, changes in vision, hearing, dysphagia, back pain, rash. PMD: Dr. Bryan, [facility] PMH: HTN, HLD, asthma, pneumonia 2002, multiple UTIs, possible hx of CAD, hx of fall in 2011 PSH: appendectomy, cholecystectomy, hysterectomy Family hx: Strong family history of CAD, Mother and sister - CVA. No history of cancer Social hx: denies tobacco, alcohol or drug use. Lives with daughter. 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 Uses a cane with her right hand. Meds: Losartan 100mg PO daily, ASA 81mg PO, Singulair 10mg mQHS daily. As per pharmacy, she last filled script for inhaler in 2016. Allergies: PCN, fish - hives/rash Code status: unknown Health care proxy: Daughter Alena [phone] Hospital course: Patient was admitted for hypertensive urgency on 10/24/17, however her blood pressure remains controlled today after she was placed on Losartan 100mg PO daily. On admission, patient complained of abdominal pain and nausea however she was able to tolerate food during her stay here without any vomiting. Patient 's chest pain is reproducible to touch- EKGs and troponins were within normal limits. Her left leg paresthesias have been ongoing for the past year, did not develop recently, uses a cane to walk. Her right sided headache has resolved today. Images: 10/24/17 CT head No acute intracranial pathology. Age-related changes. 10/24/17 CTA 1. No evidence of intraluminal thrombus, definite significant stenosis or occlusion in the intracranial arteries.2. No evidence of hemodynamically significant stenosis in the internal carotid arteries. 3. Patent codominant vertebral arteries 10/24/17 CXR: no active disease 10/24/17 ECHO: there is mild concentric LVH. LV systolic function is normal, with EF 60-65%. Transmitral doppler flow pattern is Grade I-abnormal relaxation pattern. There is mild to moderate aortic regurgitation. Mitral regurgitation is trace. There is mild to moderate pulmonary valvular regurgitation. the ascending aorta is mildly dilated 3.8cm. Discharge summary: The following instructions were explained to Jenelle Carvajal and a copy will need to be provided to her upon discharge: 1). Schedule follow up with primary care physician Dr. Jam Bryan to take place in the next 7 days by calling [phone]. Through his office you will need to have the following done: CT Scan of the Lumbar Spine Urine Culture to make sure that there is NO infection after completing antibiotic Follow up report for ultrasound of the heart that was done while you were in the hospital 2). Measure blood pressure and heart rate once a day in the following manner and bring results in with you to your appointment with Dr. Bryan: One day before breakfast One day before lunch One day before dinner Then continue to repeat this cycle 3). You will need to have the following prescriptions filled at your pharmacy on your way from the hospital: Norvasc 5 mg, 1 tablet by mouth 1x/day at 8 PM, Dispense #30, NO refills Pulmicort 180 mcg/actuation, 1 puff inhalation by mouth 2x/day (8 AM and 8 PM), Dispense #1, NO refills Albuterol 90 mcg/acutation, 2 puff inhalation by mouth every 6 hours ONLY NEEDED for shortness of breath, Dispense #1, NO refills Ciprofloxacin 500 mg, 1 tablet by mouth 2x/day (8 AM and 8 PM), Dispense #10, NO refills Pepcid 20 mg, 1 tablet by mouth 2x/day (8 AM and 8 PM), Dispense #60, NO refills 4). You stated that you had enough of Losartan 100 mg at home so please continue to take this at 8 AM every day. 5). DO NOT take the other inhalers that you have at home. 6). You may take 8 ounces of prune juice in the morning if you have not had a bowel movement in 2 to 3 days. 7). Please make sure that you are eating 1 serving of [place] yogurt containing probiotics with lunch every day for the next 35 days. This will help you to keep the good bacteria in your colon that may have gone away while you are on the antibiotic for your urine. Discharge Exam - Head Exam Head Exam: ATRAUMATIC, NORMOCEPHALIC - Eye Exam Eye Exam: EOMI - ENT Exam ENT Exam: Mucous Membranes Moist - Respiratory Exam Respiratory Exam: Chest Wall Tenderness, Clear to PA & Lateral. absent: Rales, Rhonchi, Wheezes, Respiratory Distress, Stridor Additional comments: reproducible to touch - Cardiovascular Exam Cardiovascular Exam: REGULAR RHYTHM, +S1, +S2 - GI/Abdominal Exam GI & Abdominal Exam: Normal Bowel Sounds, Soft. absent: Distended, Firm, Guarding, Tenderness - Extremities Exam Additional comments: NO CALF TENDERNESS, NO PEDAL EDEMA - Neurological Exam Neurological exam: Alert, CN II-XII Intact, Oriented x3 Discharge Plan - Discharge Medications Prescriptions: Albuterol HFA [Ventolin HFA 90 mcg/actuation (8 g)] 2 puff IH [id number] #1 puff amLODIPine [Norvasc] 5 mg PO DAILY #30 tab Budesonide [Pulmicort Flexhaler] 180 mcg IH BID #1 aer.pow.[email or web address] Ciprofloxacin [Cipro] 500 mg PO BID #60 tab Famotidine [Pepcid] 20 mg PO BID #60 tab - Follow Up Plan Condition: STABLE Disposition: HOME/ ROUTINE Instructions: Ciprofloxacin (Systemic), Heart Healthy Diet, DASH Diet, High Blood Pressure (DC), High Blood Pressure Emergencies, Albuterol, Amlodipine, Famotidine, Budesonide (Oral Inhalation) Additional Instructions: The following instructions were explained to Jenelle Carvajal and a copy will need to be provided to her upon discharge: 1). Schedule follow up with primary care physician Dr. Jam Bryan to take place in the next 7 days by calling [phone]. Through his office you will need to have the following done: CT Scan of the Lumbar Spine Urine Culture to make sure that there is NO infection after completing antibiotic Follow up report for ultrasound of the heart that was done while you were in the hospital 2). Measure blood pressure and heart rate once a day in the following manner and bring results in with you to your appointment with Dr. Bryan: One day before breakfast One day before lunch One day before dinner Then continue to repeat this cycle 3). You will need to have the following prescriptions filled at your pharmacy on your way from the hospital: Norvasc 5 mg, 1 tablet by mouth 1x/day at 8 PM, Dispense #30, NO refills Pulmicort 180 mcg/actuation, 1 puff inhalation by mouth 2x/day (8 AM and 8 PM), Dispense #1, NO refills Albuterol 90 mcg/acutation, 2 puff inhalation by mouth every 6 hours ONLY NEEDED for shortness of breath, Dispense #1, NO refills Ciprofloxacin 500 mg, 1 tablet by mouth 2x/day (8 AM and 8 PM), Dispense #10, NO refills Pepcid 20 mg, 1 tablet by mouth 2x/day (8 AM and 8 PM), Dispense #60, NO refills 4). You stated that you had enough of Losartan 100 mg at home so please continue to take this at 8 AM every day. 5). DO NOT take the other inhalers that you have at home. 6). You may take 8 ounces of prune juice in the morning if you have not had a bowel movement in 2 to 3 days. 7). Please make sure that you are eating 1 serving of [place] yogurt containing probiotics with lunch every day for the next 35 days. This will help you to keep the good bacteria in your colon that may have gone away while you are on the antibiotic for your urine. Referrals: [facility] [Outside]
--- NOTE | 2017-10-26 01:11 | CARD ---
APPROVED REPORT Date of service: 10/24/2017 EKG Measurement Heart [id number] <Conclusion> Normal sinus rhythm Normal ECG
== END 2017-10-25 14:00 | disposition home or self-care (01) ==
LOC: C.ER 10:13 → C.9E 12:50 → C.6T 17:31
PROVIDERS: ADMIT Family Medicine; ATTEND Family Medicine
DX: I16.1 Hypertensive emergency (principal); E78.00 Pure hypercholesterolemia, unspecified; I10 Essential (primary) hypertension; I35.1 Nonrheumatic aortic (valve) insufficiency; J45.909 Unspecified asthma, uncomplicated; R07.89 Other chest pain; R20.2 Paresthesia of skin
CPT/HCPCS: 36415; 70450; 70496; 70498; 71045; 80048; 80053; 80061; 81001; 82948; 83036; 83735; 84100; 84439; 84443; 84484; 85025; 85610; 85730; 86850; 86900; 93005; 93306; 94640; 96374; 97116; 97162; 97165; 97530; 99285; G0378; G8978; G8979; G8987; G8988; G8989; J0360; J1644; J2405